=== PATIENT | male | born 1960 | race Two or more races ===

== ENCOUNTER 2024-06-08 15:30 | Emergency (ER) | payer SELFPAY ==
[~2024-06-08] VITALS: Ht 170.2 cm; Wt 68.2 kg
[~2024-06-08 15:30] MED LIST: CIPR500T10 PO; METR500 PO
[2024-06-08 15:36] VITALS: TEMP 98.4
[2024-06-08] MEDS: FentaNYL CITRATE PF 100 MCG/2 ML VIAL IVP ONE (16:35)
[2024-06-08] MEDS: ONDANSETRON HCL 4 MG/2 ML VIAL IVP ONE (16:35)
[2024-06-08 16:44] LABS: BASOPHILS % (AUTO) 0.7 % (0.0-2.0); EOSINOPHILS % (AUTO) 6.3 % (1.0-6.0); HEMATOCRIT 37.8 % (41-53); HEMOGLOBIN 12.2 g/dL (13.5-17.5); LYMPHOCYTES # (AUTO) 1.8 K/uL (1.0-4.8); LYMPHOCYTES % (AUTO) 22.4 % (22.0-44.0); MEAN CORPUSCULAR HEMOGLOBIN 27.8 pg (26.0-34.0); MEAN CORPUSCULAR HGB CONC 32.4 G/dL (31.0-37.0); MEAN CORPUSCULAR VOLUME 86 fL (80-100); MONOCYTES # (AUTO) 0.6 K/uL (0.1-1.0); MONOCYTES % (AUTO) 7.4 % (2.0-9.0); NEUTROPHILS % (AUTO) 63.2 % (40.0-70.0); PLATELET COUNT (AUTO) 295 K/uL (150-450); RED BLOOD CELL COUNT(AUTO) 4.41 MIL/uL (4.50-5.90); RED CELL DISTRIBUTION WIDTH 16.4 % (11.5-14.5); WHITE BLOOD COUNT (AUTO) 7.8 K/uL (4.5-11.0)
[2024-06-08 16:59] LABS: ANION GAP 7 mmol/L (8-16); CALCIUM, TOTAL 8.6 mg/dL (8.8-10.5); CARBON DIOXIDE 31 mmol/L (22-29); CHLORIDE 99 mmol/L (98-107); CREATININE 0.73 mg/dL (0.60-1.30); GLOMERULAR FILTR. RATE CALC > 60 mL/min (>60); GLUCOSE,RANDOM 97 mg/dL (70-110); POTASSIUM 3.6 mmol/L (3.5-5.1); SODIUM SERUM 137 mmol/L (136-145); UREA NITROGEN, BLOOD 11 mg/dL (7-18)
[2024-06-08 17:05] LABS: ALANINE AMINOTRANSFERASE 13 U/L (12-78); ALKALINE PHOSPHATASE 65 U/L (46-116); ASPARTATE AMINOTRANSFERASE 16 U/L (15-37); BILIRUBIN,TOTAL 0.4 mg/dL (0.1-1.0); LIPASE 47 U/L (16-77); TOTAL PROTEIN, SERUM 7.1 g/dL (6.4-8.2)
[2024-06-08] MEDS ORDERED: SODIUM CHLORIDE 0.9% 100 ML ONE (17:11)
[2024-06-08] MEDS ORDERED: IOHEXOL 350 MG/ML 100 ML VIAL ONE (17:11)
[2024-06-08 19:14] VITALS: BP 119/63; PULSE 64; RESP 20; O2SAT 94
[2024-06-08] MEDS ORDERED: OXYC-38 PO (19:36)
== END 2024-06-08 20:15 | disposition home or self-care (01) ==
LOC: EMS 15:30
DX: K40.90 Unilateral inguinal hernia, without obstruction or gangrene, not specified as recurrent (principal); F17.210 Nicotine dependence, cigarettes, uncomplicated; Z98.890 Other specified postprocedural states
CPT/HCPCS: 99285; 74177; 96374; 96375; 80053; 83690; 85025; 36415; 93005; Q9967; J3010; J2405; J7050